=== PATIENT | male | born 1950 | race Caucasian/White ===

== ENCOUNTER → 2017-07-12 | Outpatient (CLI) | payer OTHER ==
--- NOTE | ~2017-07-12 | SLE ---
[facility] [place] [address] [address] POLYSOMNOGRAPHY STUDY Name: GIOVANI MINAYA Destin Room #: [facility]#: [id number] Admission: 07/12/17 Attend Phys: Ryan Cruz MD Discharge: Date of : 52 Report #: [id number] THIS REPORT FOR: //name// CC: Allen Cruz HISTORY: The patient with study on 09/04/2014 showing an apnea-hypopnea index of 6 events per sleep hour, a respiratory disturbance index of 20 events per sleep hour, periodic limb movement with arousal index of 10 events per sleep hour. Cabot sleepiness scale of 11. COMMENTS: PACs/PVCs noted. CPAP TITRATION: Titrated at 10, 12, 14 and 15 cm water pressure. At 15 cm water pressure, the patient was seen for 133 minutes of which 32 minutes was in REM sleep, 11 hypopneas, apnea-hypopnea index of 5 events per sleep hour, low oxygen saturation 88%. At 12 cm water pressure, the patient was seen for 43 minutes of which 22 minutes was in REM sleep. One hypopnea, apnea-hypopnea index 1.4 events per sleep hour, low sat of 93%. Continued snoring was noted. IMPRESSION: 1. History of obstructive sleep apnea/hypopnea. 2. Throughout the night, periodic limb movement with arousal index 1.6 events per sleep hour. 3. Premature atrial contractions/premature ventricular contractions noted. 4. CPAP improves the patient's apnea-hypopnea index, snoring and desaturation. 5. Premature atrial contractions/premature ventricular contractions noted. SUGGESTIONS: 1. The usual sleep apnea suggestions are recommended. 2. The patient should be cautioned regarding the use of respiratory depressants. 3. Oral appliance or appropriate surgery may be considered with appropriate followup. 4. Further evaluation regarding PAC/PVC is recommended. 5. A home auto-titrating CPAP between 10 and 18 cm water pressure is recommended. During our study, a ResMed full face AirFit N20 medium mask was used with heated humidity. 6. If signs and symptoms not improved with therapy, further evaluation [facility] [address] [place] [address] POLYSOMNOGRAPHY STUDY Name: GIOVANI MINAYA Room #: [facility]#: [id number] Admission: 07/12/17 Attend Phys: Ryan Cruz MD Discharge: Date of : 52 Report #: [id number] recommended. Please do not hesitate to contact me if I may be of further assistance. By: 15 26 Allen Eddy MD /nt
== END ==
LOC: SLEEPLAB 07:55
DX: G47.33 Obstructive sleep apnea (adult) (pediatric) (principal)

== ENCOUNTER → 2020-10-11 | Outpatient (CLI) | payer BC | LOC: CAT 10:32 | PROVIDERS: ATTEND Internal Medicine | DX: Z12.2 Encounter for screening for malignant neoplasm of respiratory organs (principal); J43.9 Emphysema, unspecified; K76.89 Other specified diseases of liver; Z87.891 Personal history of nicotine dependence ==